=== PATIENT | male | born 1940 | race Caucasian/White ===

== ENCOUNTER 2020-09-08 14:12 | Outpatient (CLI) | payer MEDICAID, SELFPAY ==
--- NOTE | 2020-09-08 14:18 | US_ITS ---
WS: [id number] RENAL ULTRASOUND HISTORY: L FLANK PAIN COMPARISON: 06/01/2006 TECHNIQUE: 2-D and color Doppler imaging of the kidney submitted. Right kidney: 9.8 cm x 4.1 cm x 4.4 cm. Kidney is normal size but there is severe increased echogenicity with loss of cortical medullary diff erentiation. There are multiple acquired cysts within the kidney. The largest cyst measures 3.4 x 2.9 x 2.3 cm. No solid mass. Left kidney: 11.8 cm x 7.0 cm x 6.7 cm. Normal size kidney with increased echogenicity throughout the renal parenchyma. Poor cortical medulla ry differentiation. There are multiple acquired renal cysts. The largest measures 4.2 x 4.3 x 2.5 cm. No obstruction. Aorta: Mild ectasia and dilatation of the abdominal aorta. Dilatation up to 2.6 cm. Urinary Bladder: Normal distention. US/US renal BI* [id number] IMPRESSION: 1. Severe bilateral chronic medical renal disease. 2. No hydronephrosis. 3. Bilateral acquired renal cysts.
== END 2020-09-08 14:13 | disposition home or self-care (01) ==
LOC: US 14:14
PROVIDERS: PCP Internal Medicine; Visit Provider Registered Nurse
DX: R10.9 Unspecified abdominal pain (principal); N18.4 Chronic kidney disease, stage 4 (severe); Q61.02 Congenital multiple renal cysts
CPT/HCPCS: 76770

== ENCOUNTER → 2022-06-06 12:58 | Outpatient (BNVA) | payer MEDICAID, SELFPAY | PROVIDERS: PCP Internal Medicine; Visit Provider Orthopaedic Surgery | DX: S43.102A Unspecified dislocation of left acromioclavicular joint, initial encounter (principal); W19.XXXA Unspecified fall, initial encounter | CPT/HCPCS: 73030; 99202; 99203 ==

== ENCOUNTER 2024-12-12 16:16 | Emergency (ER) | payer MEDICAID, SELFPAY ==
[2024-12-12 16:20] VITALS: BP 123/66; PULSE 69; RESP 18; TEMP 36.6; O2SAT 99; BMI 86.8
--- NOTE | 2024-12-12 16:21 | CTR_ITS ---
PROCEDURE INFORMATION: Exam: CT Head Without Contrast Exam date and time: 12/12/2024 4:31 PM Age: 84 years old Clinical indication: Injury or trauma; Fall; Blunt trauma (contusions or hematomas) and laceration; Without residual foreign body; Eye; Right; Additional info: Fall, head injury TECHNIQUE: Imaging protocol: Computed tomography of the head without contrast. Radiation optimization: All CT scans at this facility use at least one of these dose optimization techniques: automated exposure control; mA and/or kV adjustment per patient size (includes targeted exams where dose is matched to clinical indication); or iterative reconstruction. COMPARISON: No relevant prior studies available. RADIATION DOSE METRICS: Total DLP (mGy-cm): 1088.98 FINDINGS: Brain: There is enlargement of the ventricular system and cortical sulci compatible with diffuse cerebral atrophy, age-related.There is patchy hypoattenuation in the deep white matter most suggestive of chronic small vessel ischemic change in a patient this age. No acute intracranial hemorrhage or significant mass effect is seen. Cerebral ventricles: Normal in size, for age, and midline in position. Paranasal sinuses: Visualized sinuses are clear. No air fluid levels. Mastoid air cells: Visualized mastoid air cells are well aerated. Bones: Intact. No acute fracture detected. Soft tissues: There appears to be mild scalp swelling in the anterior frontal supraorbital region. Vasculature: There is atherosclerotic calcification of the internal carotid arteries and vertebrobasilar system at the skull base. CT/CT head wo con* [id number] IMPRESSION: 1. Age-related atrophy with patchy chronic small-vessel ischemic changes in the deep white matter. 2. Mild anterior frontal scalp swelling in the supraorbital region. 3. No acute intracranial hemorrhage or significant mass effect seen.
--- NOTE | 2024-12-12 16:21 | W.ED.HEATRA ---
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 Apparently he had fallen over and hit his head on a coffee table this morning. He had then gone to dialysis. After dialysis they sent him to the emergency room. No loss of consciousness. He says he is not on any anticoagulation. No nausea or vomiting. No headache. He has a laceration above his right eyebrow. Related Data Home Medications ?Medication ?Instructions ?Recorded ?Confirmed allopurinol 300 mg tablet 300 mg PO DAILY 11/24/21 12/12/24 coQ10 (ubiquinol) 100 mg capsule 100 mg PO DAILY 11/24/21 12/12/24 amlodipine 5 mg tablet 5 mg PO DAILY 12/12/24 12/12/24 atenolol 50 mg tablet 50 mg PO DAILY 12/12/24 12/12/24 elderberry fruit 460 mg-elderberry 1 cap PO DAILY 12/12/24 12/12/24 flower 115 mg capsule ashia (Zingiber officinalis) 550 550 mg PO DAILY 12/12/24 12/12/24 mg capsule loperamide 1 mg/7.5 mL oral liquid 2 mg PO Q2H PRN Diarrhea 12/12/24 12/12/24 (Imodium A-D) sevelamer carbonate 800 mg tablet See Rx Instructions .Route .COMPLEX 12/12/24 12/12/24 vit B,C-folic ac 800 mcg-zinc 12.5 1 tab PO DAILY 12/12/24 12/12/24 mg-selen-D3 2,000 unit-vit E tablet (RenaPlex-D) zinc acetate 50 mg (zinc) capsule 50 mg PO DAILY 12/12/24 12/12/24 Allergies Allergy/AdvReac Type Severity Reaction Status Date / Time Penicillins Allergy Mild rash Verified 10/05/22 09:32 Review of Systems Narrative: Constitutional symptoms: Negative except as documented in HPI. Skin symptoms: Negative except as documented in HPI. Eye symptoms: Negative except as documented in HPI. ENMT symptoms: Negative except as documented in HPI. Respiratory symptoms: Negative except as documented in HPI. Cardiovascular symptoms: Negative except as documented in HPI. Gastrointestinal symptoms: Negative except as documented in HPI. Genitourinary symptoms: Negative except as documented in HPI. Musculoskeletal symptoms: Negative except as documented in HPI. Neurologic symptoms: Negative except as documented in HPI. Psychiatric symptoms: Negative except as documented in HPI. Endocrine symptoms: Negative except as documented in HPI. PFSH ED PFSH: Medical History Anemia End stage renal disease Gout History of nonmelanoma skin cancer Hypertension Surgical History Status post amputation of extremity Family History Family/Other Cancer Social History Smoking and tobacco/nicotine status: former use of tobacco/nicotine Alcohol intake: never Substance/Drug Use: never Physical Exam Narrative: EXAM NARRATIVE: General: Alert, no acute distress. Skin: Warm, dry. Head: Normocephalic, laceration on the right eyebrow.. Neck: Supple, trachea midline. Eye: Extraocular movements are intact. Ears, nose, mouth and throat: mucosa moist. Cardiovascular: Regular, Normal peripheral perfusion. Respiratory: Lungs are clear to auscultation, respirations are non-labored, breath sounds are equal, Symmetrical chest wall expansion. Gastrointestinal: Soft, Nontender, Non distended Musculoskeletal: Bilateral AKA. Neurological: Alert and oriented, No focal neurological deficit observed. Psychiatric: Cooperative, appropriate mood & affect. Course Vital Signs: Vital signs: Vital Signs Temperature 97.9 F 12/12/24 16:20 Pulse Rate 69 12/12/24 16:20 Respiratory Rate 18 12/12/24 16:20 Blood Pressure 123/66 12/12/24 16:20 Pulse Oximetry 99 12/12/24 16:20 Oxygen Delivery Me thod Room Air 12/12/24 16:20 MDM - Head Injury Medcial Decision Making CT head: Extensive senescent changes/volume loss. No acute intracranial process. no intracranial hemorrhage, no evidence of infarct. no evidence of acute fracture.This was reviewed and interpreted by myself the ER physician. Assessment and plan: Scalp laceration ?Life-saving tetanus given in the emergency room. - Discharged home - Discussed plan with patient. Answered any questions. - Evaluation and treatment of this problem were appropriate in the emergency setting. Lab Data Radiology Impressions Head CT 12/12/24 16:21 IMPRESSION: 1. Age-related atrophy with patchy chronic small-vessel ischemic changes in the deep white matter. 2. Mild anterior frontal scalp swelling in the supraorbital region. 3. No acute intracranial hemorrhage or significant mass effect seen. All radiology interpretation(s) finalized by discharge Discharge Plan Discharge Patient Disposition: Home Clinical Impression: Facial laceration Condition: Stable Prescriptions: No Action coQ10 (ubiquinol) 100 mg capsule 100 mg PO DAILY allopurinol 300 mg tablet 300 mg PO DAILY zinc acetate 50 mg (zinc) Capsule 50 mg PO DAILY amlodipine 5 mg tablet 5 mg PO DAILY atenolol 50 mg tablet 50 mg PO DAILY ashia (Zingiber officinalis) 550 mg Capsule 550 mg PO DAILY loperamide [Imodium A-D] 1 mg/7.5 mL Liquid 2 mg PO Q2H PRN (Reason: Diarrhea) Rx Instructions: administer after each loose stool until symptoms controlled; do not exceed 8 mg per 24 hrs sevelamer carbonate 800 mg tablet See Rx Instructions .ROUTE .COMPLEX Rx Instructions: TAKE 1 TABLET BY MOUTH DAILY WITH THE LARGEST MEAL OF THE DAY. elderberry fruit and flower 460-115 mg Capsule 1 cap PO DAILY RenaPlex-D 800 mcg-12.5 mg -2,000 unit tablet 1 tab PO DAILY Discharge Orders: Discharge ED (Routine); Ordered 12/12/24 Ordered By: Yris Corona Referrals: Onesimo Salazar DO [Primary Care Provider] - Patient Instructions: Care For Your Stitches (ED), Opioid Safety, Pain Management Activity Restrictions/Additional Instructions: Keep the area clean and dry, wash twice per day with antibacterial soap and water. Return to your primary provider or the emergency room in 7 days for suture removal. Avoid any prolonged submersion in water. Avoid all bal water, pond water, streams or other untreated water. Thank you for choosing [facility] for your healthcare needs today. You have been screened and evaluated and felt safe for discharge. Health conditions do change or evolve sometimes and as such it is important that you follow up with your Primary Doctor to be re checked, 3-5 days is a general good time frame for follow up. You are always welcome to return to the ED for re assessment if your symptoms are worsening or you have new concerns Print Language: Icelandic Coding Level of Care Code ED Lacquer Mixer for Chg Fwd Documented by User: MOY Skinner 12/12/24 16:55 HPI - Head Injury General: Chief complaint: Wound/Laceration Stated complaint: head lac Time Seen by Provider: 12/12/24 16:17 Related Data Home Medications ?Medication ?Instructions ?Recorded ?Confirmed allopurinol 300 mg tablet 300 mg PO DAILY 11/24/21 12/12/24 coQ10 (ubiquinol) 100 mg capsule 100 mg PO DAILY 11/24/21 12/12/24 amlodipine 5 mg tablet 5 mg PO DAILY 12/12/24 12/12/24 atenolol 50 mg tablet 50 mg PO DAILY 12/12/24 12/12/24 elderberry fruit 460 mg-elderberry 1 cap PO DAILY 12/12/24 12/12/24 flower 115 mg capsule ashia (Zingiber officinalis) 550 550 mg PO DAILY 12/12/24 12/12/24 mg capsule loperamide 1 mg/7.5 mL oral liquid 2 mg PO Q2H PRN Diarrhea 12/12/24 12/12/24 (Imodium A-D) sevelamer carbonate 800 mg tablet See Rx Instructions .Route .COMPLEX 12/12/24 12/12/24 vit B,C-folic ac 800 mcg-zinc 12.5 1 tab PO DAILY 12/12/24 12/12/24 mg-selen-D3 2,000 unit-vit E tablet (RenaPlex-D) zinc acetate 50 mg (zinc) capsule 50 mg PO DAILY 12/12/24 12/12/24 Allergies Allergy/AdvReac Type Severity Reaction Status Date / Time Penicillins Allergy Mild rash Verified 10/05/22 09:32 PFS ED PFSH: Medical History Anemia End stage renal disease Gout History of nonmelanoma skin cancer Hypertension Surgical History Status post amputation of extremity Family History Family/Other Cancer Social History Smoking and tobacco/nicotine status: former use of tobacco/nicotine Alcohol intake: never Substance/Drug Use: never Procedures Laceration Laceration 1: Site: face (R eyebrow) Side (If applicable): right Size (cm): 1.5 Description: linear Depth: simple, single layer Local Anesthetic: lidocaine 2% Amount of anesthesia used (mL): 3.0 Pre-repair: wound explored and irrigated extensively Skin layer closed with: nylon Size (cm): 4-0 Number of sutures: 4 Technique: running Course ED course: I was consulted by Dr. Corona to repair patient's right eyebrow laceration. Wound was copiously irrigated and repaired as documented. Other than laceration repair, I did not actively participate in any portion of patient's care. ES Vital Signs: Vital signs: Vital Signs Temperature 97.9 F 12/12/24 16:20 Pulse Rate 69 12/12/24 16:20 Respiratory Rate 18 12/12/24 16:20 Blood Pressure 123/66 12/12/24 16:20 Pulse Oximetry 99 12/12/24 16:20 Oxygen Delivery Me thod Room Air 12/12/24 16:20 MDM - Head Injury Lab Data Radiology Impressions Head CT 12/12/24 16:21 IMPRESSION: 1. Age-related atrophy with patchy chronic small-vessel ischemic changes in the deep white matter. 2. Mild anterior frontal scalp swelling in the supraorbital region. 3. No acute intracranial hemorrhage or significant mass effect seen. Discharge Plan Discharge Patient Disposition: Home Clinical Impression: Facial laceration Condition: Stable Prescriptions: No Action coQ10 (ubiquinol) 100 mg capsule 100 mg PO DAILY allopurinol 300 mg tablet 300 mg PO DAILY zinc acetate 50 mg (zinc) Capsule 50 mg PO DAILY amlodipine 5 mg tablet 5 mg PO DAILY atenolol 50 mg tablet 50 mg PO DAILY ashia (Zingiber officinalis) 550 mg Capsule 550 mg PO DAILY loperamide [Imodium A-D] 1 mg/7.5 mL Liquid 2 mg PO Q2H PRN (Reason: Diarrhea) Rx Instructions: administer after each loose stool until symptoms controlled; do not exceed 8 mg per 24 hrs sevelamer carbonate 800 mg tablet See Rx Instructions .ROUTE .COMPLEX Rx Instructions: TAKE 1 TABLET BY MOUTH DAILY WITH THE LARGEST MEAL OF THE DAY. elderberry fruit and flower 460-115 mg Capsule 1 cap PO DAILY RenaPlex-D 800 mcg-12.5 mg -2,000 unit tablet 1 tab PO DAILY Discharge Orders: Discharge ED (Routine); Ordered 12/12/24 Ordered By: Yris Corona Referrals: Onesimo Salazar DO [Primary Care Provider] - Patient Instructions: Care For Your Stitches (ED), Opioid Safety, Pain Management Activity Restrictions/Additional Instructions: Keep the area clean and dry, wash twice per day with antibacterial soap and water. Return to your primary provider or the emergency room in 7 days for suture removal. Avoid any prolonged submersion in water. Avoid all bal water, pond water, streams or other untreated water. Thank you for choosing [facility] for your healthcare needs today. You have been screened and evaluated and felt safe for discharge. Health conditions do change or evolve sometimes and as such it is important that you follow up with your Primary Doctor to be re checked, 3-5 days is a general good time frame for follow up. You are always welcome to return to the ED for re assessment if your symptoms are worsening or you have new concerns Print Language: Icelandic Coding Level of Care Code ED Lacquer Mixer for Sallie Sagastume
[2024-12-12] MEDS: tetanus-dipt-pertussis 0.5 mL SDV IM (17:06)
[2024-12-12 18:03] VITALS: BP 124/57; PULSE 68; RESP 16; O2SAT 97
== END 2024-12-12 18:02 | disposition home or self-care (01) ==
PROVIDERS: Emergency Provider Emergency Medicine; PCP Internal Medicine
DX: S01.81XA Laceration without foreign body of other part of head, initial encounter (principal); Z87.891 Personal history of nicotine dependence; Z85.828 Personal history of other malignant neoplasm of skin; I12.0 Hypertensive chronic kidney disease with stage 5 chronic kidney disease or end stage renal disease; N18.6 End stage renal disease; W01.190A Fall on same level from slipping, tripping and stumbling with subsequent striking against furniture, initial encounter
CPT/HCPCS: 70450; 90471; 90715; 99284